=== PATIENT | female | born 1960 | race Caucasian/White ===

== ENCOUNTER 2018-07-20 08:37 | Observation (INO) ==
[2018-07-20] MEDS ORDERED: ASPIRIN 81 MG TAB.CHEW CHEWED ONE (08:48)
[2018-07-20] MEDS ORDERED: ONDANSETRON 4 MG/2 ML VIAL IV ONE (08:57)
[2018-07-20] MEDS ORDERED: LORazepam 2 MG/ML VIAL IV ONE (08:58)
--- NOTE | 2018-07-20 08:58 | XRay Report ---
HISTORY: New onset chest pain FINDINGS: The lungs are clear and well expanded. The heart size, pulmonary vasculature, mediastinum, dom and pleura are normal. IMPRESSION: Normal chest Interpreted and Authenticated by: Thanh Thacker 07/20/18
--- NOTE | 2018-07-20 09:00 | Emergency Department Note ---
Chest Pain HPI - General Chief Complaint: Chest Pain Stated Complaint: Left shoulder pain, nausea Time Seen by Provider: 07/20/18 08:58 Source: patient Mode of arrival: ambulatory Limitations: no limitations - History of Present Illness HPI Narrative: I briefly saw patient before change in shift. Dr. Hoffmann will follow-up for full history and physical. Patient presented with chest pain but was not able to speak with me due to some rapid breathing and some dry heaves. Her initial EKG was not remarkable for any ST elevation or depressions of significance. Because of her retching and breathing somewhat fast and having difficulties controlling this I ordered ondansetron and lorazepam. Dr. Hoffmann will finish the history and physical, treatment and intervention, and disposition. - Related Data Allergies Allergy/AdvReac Type Severity Reaction Status Date / Time No Known Drug Allergies Allergy Verified 07/20/18 08:38 Chest Pain PMH - Social History smoking status: Never smoker Physical Exam Limitations: no limitations Course Vital Signs Respiratory Rate 32 H 07/20/18 08:38 Pulse Oximetry (%) 97 07/20/18 08:38 Respiratory Rate 32 H 07/20/18 08:38 Pulse Oximetry (%) 97 07/20/18 08:38 Chest Pain - Lab Data Result diagrams: 07/20/18 08:57 07/20/18 08:57 Disposition Pt seen by CONSULTATIVE SALES ASSOCIATE/PA only: No Clinical Impression: Tachypnea Chest pain Qualifiers: Chest pain type: unspecified Qualified Code(s): R07.9 - Chest pain, unspecified Nausea & vomiting Qualifiers: Vomiting type: unspecified Vomiting Intractability: non-intractable Qualified Code(s): R11.2 - Nausea with vomiting, unspecified Disposition: Still a Patient
[2018-07-20] MEDS ORDERED: LACTATED RINGERS 1,000 ML IV ONE ×2 (09:17→10:30)
[2018-07-20] MEDS ORDERED: INSULIN REGULAR, HUMAN 1 UNIT/0.01 ML UNIT IV ONE (09:20)
[2018-07-20] MEDS ORDERED: 0.9 % SODIUM CHLORIDE 1,000 ML IV ONE (09:22)
[2018-07-20 09:32] LABS: Basophils # (Auto) 0 K/mcL (0.0-0.3); Basophils % (Auto) 0.1 % (0.0-2.0); Eosinophils # (Auto) 0 K/mcL (0.0-0.7); Eosinophils % (Auto) 0 % (0.0-7.0); Granulocytes % (Auto) 92.1 % (38.0-78.0); Lymphocytes # (Auto) 0.7 K/mcL (1.5-4.8); Lymphocytes % (Auto) 3.8 % (15.5-49.0); Mean Cell Volume 91.6 fL (80.0-100.0); Mean Corpuscular HGB Conc 33.2 g/dL (31.0-36.0); Mean Corpuscular Hemoglobin 30.4 pg (26.0-34.0); Monocytes # (Auto) 0.7 K/mcL (0.1-0.9); Platelet Count 222 K/mcL (140-440); RBC 4.49 M/mcL (4.00-5.20); Red Cell Distribution Width 13.9 % (11.5-14.5)
[2018-07-20 09:55] LABS: ALT/SGPT 17 U/l (0-40); Albumin 3.8 gm/dL (3.2-5.2); Albumin/Globulin Ratio 1.5 (1.0-2.3); Alkaline Phosphatase 71 U/L (39-117); Blood Urea Nitrogen 23 mg/dl (6-20); Creatine Kinase 55 IU/L (24-170); Creatine Kinase MB 2.7 ng/ml (0-2.9); Myoglobin 80 ng/ml (25-58)
--- NOTE | 2018-07-20 10:11 | Emergency Department Note ---
General Adult HPI - General Chief complaint: Chest Pain Stated complaint: Left shoulder pain, nausea Time Seen by Provider: 07/20/18 08:58 Source: patient Mode of arrival: ambulatory Limitations: no limitations - History of Present Illness HPI Narrative: 57-year-old female type I diabetic comes in after a night of nausea vomiting. Having chest pain and retching. She states it all started after putting some old insulin in her pump. She is visiting from [place] and ran out of her regular insulin and had to use an older bottle-she thinks it is bad and not working. Blood sugar has been climbing. She has continuous monitor and pump. She states she has never had a diabetic coma before nor has she been in DKA. She is concerned because she has to take a plane at 2:00 p.m. home. She was not ill before this episode of using this old insulin - Related Data Allergies Allergy/AdvReac Type Severity Reaction Status Date / Time No Known Drug Allergies Allergy Verified 07/20/18 08:38 Review of Systems All systems ED: reviewed and negative except as stated. Past Medical History - Past Medical History Attestation: Yes: The following information was validated with the patient. Medical history: Reports: DM (Type I), hyperlipidemia, hypertension, thyroid disease Surgical history ED: Reports: - Social History smoking status: Never smoker Physical Exam Thin ascencio female no acute distress resting comfortably. Normocephalic atraumatic. Conjunctive are clear sclerae nonicteric. No nasal discharge or congestion. Heart is tachycardic without murmur. Lungs are clear to auscultation bilaterally without wheezes rales rhonchi or respiratory distress. No pedal edema. Alert oriented able to answer questions appropriately Limitations: no limitations Course Vital Signs Pulse Rate 92 H 07/20/18 08:38 Respiratory Rate 32 H 07/20/18 08:38 Blood Pressure 125/51 07/20/18 08:38 Pulse Oximetry (%) 97 07/20/18 08:38 Pulse Rate 98 H 07/20/18 10:31 Respiratory Rate 30 H 07/20/18 10:47 Blood Pressure 105/40 07/20/18 10:46 Pulse Oximetry (%) 96 07/20/18 10:31 Medical Decision Making - Medical Records Medical records reviewed: Yes I reviewed the patient's medical records. Nothing here - Lab Data Lab results reviewed: Yes I reviewed the patient's lab results. Result diagrams: 07/20/18 08:57 07/20/18 08:57 Lab Results 07/20/18 07/20/18 07/20/18 Range/Units 08:57 08:57 08:57 WBC 18.2 H (4.5-11.0) K/mcL RBC 4.49 (4.00-5.20) M/mcL Hgb 13.6 (12.0-15.0) g/dL Hct 41.1 (36.0-48.0) % MCV 91.6 (80.0-100.0) fL MCH 30.4 (26.0-34.0) pg MCHC 33.2 (31.0-36.0) g/dL RDW 13.9 (11.5-14.5) % Plt Count 222 (140-440) K/mcL MPV 8.9 (7.4-10.4) fL Gran % 92.1 H (38.0-78.0) % Lymph % (Auto) 3.8 L (15.5-49.0) % [place] % (Auto) 4.0 (1.0-12.0) % Eos % (Auto) 0 (0.0-7.0) % Baso % (Auto) 0.1 (0.0-2.0) % Gran # 16.7 H (1.8-8.0) K/mcL Lymph # (Auto) 0.7 L (1.5-4.8) K/mcL [place] # (Auto) 0.7 (0.1-0.9) K/mcL Eos # (Auto) 0 (0.0-0.7) K/mcL Baso # (Auto) 0 (0.0-0.3) K/mcL Sodium 134 (133-145) mmol/L Potassium 4.5 (3.3-5.1) mmol/L Chloride 92 L (96-108) mmol/L Carbon Dioxide 13 L (22-30) mmol/L Anion Gap 29.0 H (8-16) BUN 23 H (6-20) mg/dl Creatinine 1.1 (0.6-1.1) mg/dl GFR Calculation 56 Glucose 444 H (70-105) mg/dL Calcium 9.7 (8.6-10.4) mg/dl Total Bilirubin 1.9 H (0.0-1.0) mg/dL AST 15 (0-37) U/l ALT 17 (0-40) U/l Alkaline Phosphatase 71 (39-117) U/L Total Creatine Kinase 55 (24-170) IU/L CK-MB (CK-2) 2.7 (0-2.9) ng/ml Myoglobin 80 H (25-58) ng/ml Troponin T < 0.01 (0-0.03) ng/ml Total Protein 6.4 (5.9-8.4) gm/dL Albumin 3.8 (3.2-5.2) gm/dL Globulin 2.6 (2.2-3.7) gm/dL Albumin/Globulin Ratio 1.5 (1.0-2.3) Beta-Hydroxybutyrate (< 0.27) mmol/L 07/20/18 Range/Units 08:57 WBC (4.5-11.0) K/mcL RBC (4.00-5.20) M/mcL Hgb (12.0-15.0) g/dL Hct (36.0-48.0) % MCV (80.0-100.0) fL MCH (26.0-34.0) pg MCHC (31.0-36.0) g/dL RDW (11.5-14.5) % Plt Count (140-440) K/mcL MPV (7.4-10.4) fL Gran % (38.0-78.0) % Lymph % (Auto) (15.5-49.0) % [place] % (Auto) (1.0-12.0) % Eos % (Auto) (0.0-7.0) % Baso % (Auto) (0.0-2.0) % Gran # (1.8-8.0) K/mcL Lymph # (Auto) (1.5-4.8) K/mcL [place] # (Auto) (0.1-0.9) K/mcL Eos # (Auto) (0.0-0.7) K/mcL Baso # (Auto) (0.0-0.3) K/mcL Sodium (133-145) mmol/L Potassium (3.3-5.1) mmol/L Chloride (96-108) mmol/L Carbon Dioxide (22-30) mmol/L Anion Gap (8-16) BUN (6-20) mg/dl Creatinine (0.6-1.1) mg/dl GFR Calculation Glucose (70-105) mg/dL Calcium (8.6-10.4) mg/dl Total Bilirubin (0.0-1.0) mg/dL AST (0-37) U/l ALT (0-40) U/l Alkaline Phosphatase (39-117) U/L Total Creatine Kinase (24-170) IU/L CK-MB (CK-2) (0-2.9) ng/ml Myoglobin (25-58) ng/ml Troponin T (0-0.03) ng/ml Total Protein (5.9-8.4) gm/dL Albumin (3.2-5.2) gm/dL Globulin (2.2-3.7) gm/dL Albumin/Globulin Ratio (1.0-2.3) Beta-Hydroxybutyrate 2.60 H (< 0.27) mmol/L ABG shows a pH of 7.34 which is mildly acidotic PCO2 at 34 and a PO2 of 77 - Radiology Data Radiology results reviewed: Yes I reviewed the patient's radiology results. Chest x-ray shows no acute changes - EKG Data EKG #1 EKG attestation: Yes I reviewed and interpreted this EKG. EKG results narrative: EKG rate of 91 sinus rhythm with 1 PAC and upsloping inferior ST borderline depression. Does not meet criteria Disposition Pt seen by SIGNAL APPRENTICE/PA only: No Clinical Impression: Tachypnea Chest pain Qualifiers: Chest pain type: unspecified Qualified Code(s): R07.9 - Chest pain, unspecified DKA (diabetic ketoacidosis) Qualifiers: Diabetes mellitus type: type 1 Diabetes mellitus complication detail: without coma Qualified Code(s): E10.10 - Type 1 diabetes mellitus with ketoacidosis without coma Summary: Patient was initially seen by Dr. Robles and chest pain protocol ordered. No acute EKG changes were seen. Patient was checked out to me at shift change. Zofran was given for nausea and vomiting along with aspirin. See orders patient is clearly in DKA with anion gap of 29 and blood sugar over 400. She was given 5 units of insulin. IV fluids were started; blood sugar only came down to 421 at next check. She showed me her monitor it does clearly show elevated blood sugar with this old insulin in the cartridge Discussed with her the need for hospitalization IV fluids and insulin drip to correct her blood sugars and anion gap. I informed Dr. Tommy De Luna, hospitalist, about the patient and await bed status. Repeat Chem-8 as ordered for 1115 to check on anion gap Hospitalist accepted patient will be admitted for further care and evaluation Disposition: Xfer As Inpt ([facility]) Condition: Fair
[2018-07-20] MEDS ORDERED: INSULIN REGULAR, HUMAN 50 UNIT in 0.9 % SODIUM CHLORIDE 99.5 ML IV SCH (10:15)
[2018-07-20] MEDS ORDERED: 0.9 % SODIUM CHLORIDE 1,000 ML IV SCH ×2 (11:00→12:30)
[2018-07-20] MEDS ORDERED: INSULIN REGULAR, HUMAN 50 UNIT in 0.9 % SODIUM CHLORIDE 100 ML IV SCH (11:00)
--- NOTE | 2018-07-20 11:14 | Internal Med History&Physical ---
Medical - H&P: HPI Patient information: Note initiated : 07/20/18 at 11:11 am Service Date, if different from initiated Date: [] Patient: Myah Alatorre a 57 y/o F admitted on for Left Shoulder Pain, Nausea. Chief Complaint: [] History of present illness: Ms. Alatorre is a 57 year old F Who was visiting her mother from out of town. She is a diabetic type I and uses insulin pump. Visiting from [place]. She brought a couple old bottles of insulin and she was doing well until yesterday afternoon. At 1:00 she finished her bottle of insulin and put 1 of her old bottles and then she went to lunch has valid little while after that she started having nausea vomiting abdominal pain anxious tachycardic continued through the evening. She is concerned about the old insulin bottles being the cause versus food she ate. She has never had DKA before. In the ER she was evaluated and found to have DKA and started on insulin drip and aggressive IV fluid hydration. Review of systems: Positive for nausea vomiting retching abdominal pain some shortness of breath with the anxiety abdominal muscle wall tenderness. Some headache and fever chills. Negative for coughing diarrhea constipation remaining 10 point review of systems reviewed and negative. Medical - H&P: PMH Medical history: Medical history: Diabetes type 1 on insulin pump Hypertension Hyperlipidemia next hypothyroidism depression/anxiety Surgical history: Several C-sections Family history: Mother had [place] Father had CAD Social history: Patient denies tobacco Drinks alcohol rarely Visiting from out of town from [place] Medication list: Levothyroxine Pravastatin Losartan Paxil Ativan Dosage is being clarified No known drug allergies Medical - H&P: Meds Allergies Allergy/AdvReac Type Severity Reaction Status Date / Time No Known Drug Allergies Allergy Verified 07/20/18 08:38 Medical - H&P: Exam - Constitutional Vitals: Pulse Resp BP Pulse Ox 98 H 30 H 105/40 96 07/20/18 10:31 07/20/18 10:47 07/20/18 10:46 07/20/18 10:31 Exam: General: Alert, Awake, No acute Distress HEENT: EOMI, dry mucous membranes, normocephalic atraumatic, neck supple CV: Tachycardia but regular, No murmurs, normal s1/s2 Pulm: Clear b/l, no wheezing/rhonchi/rales Abd: soft, nontender, +BS x4 Ext: no clubbing/cyanosis/edema Neuro: Alert, no focal deficits, moves all extremities Skin: warm/dry Medical - H&P: Reslt - Labs CBC & Chem 7: 07/20/18 08:57 07/20/18 08:57 Labs: Short CBC 07/20/18 Range/Units 08:57 WBC 18.2 H (4.5-11.0) K/mcL Hgb 13.6 (12.0-15.0) g/dL Hct 41.1 (36.0-48.0) % Plt Count 222 (140-440) K/mcL BMP 07/20/18 08:57 Sodium 134 Potassium 4.5 Chloride 92 L Carbon Dioxide 13 L BUN 23 H Creatinine 1.1 Glucose 444 H Calcium 9.7 Cardiac Enzymes 07/20/18 07/20/18 Range/Units 08:57 08:57 Total Creatine Kinase 55 (24-170) IU/L CK-MB (CK-2) 2.7 (0-2.9) ng/ml Troponin T < 0.01 (0-0.03) ng/ml Liver Function 07/20/18 Range/Units 08:57 Total Bilirubin 1.9 H (0.0-1.0) mg/dL AST 15 (0-37) U/l ALT 17 (0-40) U/l Alkaline Phosphatase 71 (39-117) U/L Albumin 3.8 (3.2-5.2) gm/dL Medical - H&P: A/P - Narrative A/P Narrative: A: *DKA: Secondary to insulin *Nausea vomiting abdominal pain: Secondary to above *volume Depletion: Secondary to above *History of hypertension: *Hypothyroidism: *History of depression/anxiety: P: -Insulin drip -Aggressive IV fluid hydration -Serial electrolytes and replete as needed -Stop patient's current insulin pump -Advance diet as tolerated -Clarify home medications and update system - -ppx:lovenox
[2018-07-20] MEDS ORDERED: LORazepam 2 MG/ML VIAL IV PRN ×2 (11:22→12:20)
[2018-07-20 12:16] LABS: Blood Urea Nitrogen 25 mg/dl (6-20)
[2018-07-20] MEDS ORDERED: ACETAMINOPHEN 325 MG TABLET PO PRN (12:20)
[2018-07-20] MEDS ORDERED: PROCHLORPERAZINE 25 MG SUPP.RECT PR PRN (12:20)
[2018-07-20] MEDS ORDERED: ONDANSETRON 4 MG/2 ML VIAL IV PRN (12:20)
[2018-07-20 13:09] LABS: Free T4 (Free Thyroxine) 1.15 ng/dl (0.7-1.7)
[2018-07-20] MEDS: 0.9 % SODIUM CHLORIDE 10 ML SYRINGE IV SCH ×2 (14:22→22:10)
[2018-07-20] MEDS: DEXTROSE 5%-NS 1,000 ML IV SCH ×2 (15:15→21:48)
[2018-07-20 15:45] LABS: Appearance,Urine CLEAR; Bacteria,Urine 0 /hpf (0); Bilirubin,Urine NEG (NEG); Color,Urine YELLOW; Glucose,Urine (UA) >=500 mg/dL (NEG); Leukocyte Esterase,Urine NEG /uL (NEG); Mucus,Urine FEW /hpf (0); Protein,Urine NEG (NEG); Specific Gravity,Urine 1.023 (1.000-1.035); Urine Blood NEG mg/dL (<0.03); Urine RBC < 1 /hpf (0-1); Urine Squamous Epithelial Cell 1 /hpf (0-4); Urine Transitional Epi Cells < 1 /hpf (0-2); Urine WBC 2 /hpf (0-4); Urobilinogen,Urine NEG (NEG)
[2018-07-20] MEDS: INSULIN REGULAR, HUMAN 50 UNIT in 0.9 % SODIUM CHLORIDE 99.5 ML IV SCH (18:11)
[2018-07-20] MEDS ORDERED: INSULIN REGULAR, HUMAN 1 UNIT/0.01 ML UNIT ONE (18:28)
[2018-07-20 20:31] LABS: Blood Urea Nitrogen 22 mg/dl (6-20)
[2018-07-21] MEDS ORDERED: INSULIN NPH, HUMAN 1 UNIT/0.01 ML UNIT SQ ONE ×2 (02:04→02:19)
[2018-07-21 04:59] LABS: Basophils # (Auto) 0 K/mcL (0.0-0.3); Basophils % (Auto) 0.2 % (0.0-2.0); Eosinophils # (Auto) 0 K/mcL (0.0-0.7); Eosinophils % (Auto) 0.3 % (0.0-7.0); Granulocytes % (Auto) 77.9 % (38.0-78.0); Lymphocytes # (Auto) 1.8 K/mcL (1.5-4.8); Mean Corpuscular Hemoglobin 30.7 pg (26.0-34.0); Monocytes % (Auto) 7.6 % (1.0-12.0); Platelet Count 172 K/mcL (140-440); Red Cell Distribution Width 13.7 % (11.5-14.5)
[2018-07-21 05:17] LABS: ALT/SGPT 13 U/l (0-40); Albumin 2.9 gm/dL (3.2-5.2); Albumin/Globulin Ratio 1.5 (1.0-2.3); Alkaline Phosphatase 51 U/L (39-117); Bilirubin,Direct 0.2 mg/dL (0.0-0.3); Blood Urea Nitrogen 19 mg/dl (6-20); Gamma Glutamyl Transpeptidase 8 U/L (5-36); Uric Acid 4.5 mg/dL (2.5-8.0)
[2018-07-21] MEDS: INSULIN REGULAR, HUMAN 50 UNIT in 0.9 % SODIUM CHLORIDE 99.5 ML IV SCH (05:47)
[2018-07-21] MEDS: 0.9 % SODIUM CHLORIDE 10 ML SYRINGE IV SCH (05:48)
--- NOTE | 2018-07-21 07:45 | Discharge Summary ---
Medical - DS: Prov Patient information: Note initiated : 07/21/18 at 7:42 am Service Date, if different from initiated Date: [] Patient: Myah Alatorre a 57 y/o F admitted on 07/20/18 for Left Shoulder Pain , Nausea. Chief Complaint: [] Date of admission: 07/20/18 11:58 Discharge date: 07/21/18 Consults: 07/20/18 Consult to Physician [CONS] Stat Comment: Consulting Provider: Tommy De Luna Reason For Exam: Physician to Consult Discharging clinician: Myesha Santamaria Medical - DS: Meds - Discharge Medications Prescriptions: Insulin Lispro [HumaLOG] 1 unit SQ UD #3 vial Active and Home Medications: Home Medications Insulin Lispro [Humalog] 1 unit SUB-Q DAILY 07/20/18 [History Confirmed Last Taken Unknown] Losartan Potassium [Cozaar] 25 mg PO DAILY 07/20/18 [History Confirmed 07/20/18 Last Taken Unknown] PARoxetine HCL [Paroxetine HCl] 20 mg PO DAILY 07/20/18 [History Confirmed 07/20 Last Taken Unknown] Pravastatin Sodium [Pravachol] 20 mg PO DAILY 07/20/18 [History Confirmed Last Taken Unknown] Thyroid,Pork [[place] Thyroid] 60 mg PO DAILY 07/20/18 [History Confirmed Last Taken Unknown] Insulin Lispro [HumaLOG] 1 unit SQ UD #3 vial 07/21/18 [Rx Last Taken Unknown] Medical - DS: Hosp Hospital course: Ms. Alatorre is a 57 year old F who was visiting her mother from [facility]. She is a diabetic type I and uses insulin pump. Visiting from [place]. She brought a couple old bottles of insulin and she was doing well until yesterday afternoon. At 1:00 she finished her bottle of insulin and put 1 of her old bottles and then she went to lunch has valid little while after that she started having nausea vomiting abdominal pain anxious tachycardic continued through the evening. She is concerned about the old insulin bottles being the cause versus food she ate. She has never had DKA before. In the ER she was evaluated and found to have DKA and started on insulin drip and aggressive IV fluid hydration, admitted to the hospital for further management The patient was treated per protocol for DKA, IVF, Insulin drip, patient responded to treatment well. She had elevated leucocytosis, but clinically no e/ o infection. The DKA was resolved by the end of the day yesterday, pt was able to tolerate po diet well. Her WBC trending down well. The reason for DKA is likely use of insulin. The patient at the time of discharge was able to tolerate po diet well, ambulating well, back to baseline. New prescription for insulin sent to the pharmacy, pt will pick it up and resume the insulin pump. She also has a continuous glucose monitor. Discharge diagnosis: DKA - Time Spent with Patient Total time spent providing and/or coordinating discharge services: Greater than 30 minutes Medical - DS: Exam - Constitutional Vitals: Vital Signs Temp Pulse Pulse Resp BP BP BP 07/21/18 06:58 98.7 F 87 16 139/63 07/21/18 03:37 98.9 F 84 16 122/62 07/21/18 01:00 98.5 F 16 116/62 07/20/18 20:59 96 H 98/41 07/20/18 20:00 99.5 F H 92 H 18 98/41 07/20/18 16:20 94 H 07/20/18 16:01 97.5 F 101 H 110/42 07/20/18 16:00 99.8 F H 104 H 18 112/47 07/20/18 15:34 109 H 112/47 07/20/18 12:47 99.4 F H 20 101/59 07/20/18 12:08 107/48 07/20/18 12:07 101 H 101/59 07/20/18 11:58 99.4 F H 102 H 16 101/59 07/20/18 11:56 24 H 07/20/18 11:31 99 H 17 107/48 07/20/18 11:24 102 H 17 132/50 07/20/18 11:01 16 111/39 07/20/18 10:47 30 H 07/20/18 10:46 19 105/40 07/20/18 10:31 98 H 19 98/35 07/20/18 10:16 98 H 18 101/39 07/20/18 10:01 107 H 17 111/42 07/20/18 09:54 19 07/20/18 09:50 20 107/38 07/20/18 09:48 98 H 20 100/35 07/20/18 09:46 96 H 19 89/37 07/20/18 09:45 99 H 07/20/18 09:31 89 18 112/74 07/20/18 09:23 90 17 07/20/18 09:16 71 22 122/58 07/20/18 09:12 81 17 125/51 07/20/18 09:05 25 H 07/20/18 08:57 30 H 131/61 07/20/18 08:38 92 H 32 H 125/51 Pulse Ox 07/21/18 06:58 99 07/21/18 03:37 96 07/21/18 01:00 98 07/20/18 20:59 97 07/20/18 20:00 97 07/20/18 16:20 95 07/20/18 16:01 91 07/20/18 16:00 96 07/20/18 15:34 96 07/20/18 12:47 97 07/20/18 12:08 07/20/18 12:07 97 07/20/18 11:58 97 07/20/18 11:56 07/20/18 11:31 97 07/20/18 11:24 97 07/20/18 11:01 07/20/18 10:47 07/20/18 10:46 07/20/18 10:31 96 07/20/18 10:16 97 07/20/18 10:01 97 07/20/18 09:54 07/20/18 09:50 07/20/18 09:48 98 07/20/18 09:46 97 07/20/18 09:45 07/20/18 09:31 99 07/20/18 09:23 100 07/20/18 09:16 80 L 07/20/18 09:12 100 07/20/18 09:05 97 07/20/18 08:57 07/20/18 08:38 97 Intake and Output 07/20/18 07/21/18 07/21/18 21:59 05:59 13:59 Intake Total 1666 / 1666 200 / 200 Output Total 400 / 400 Balance 1266 / 1266 200 / 200 Intake: IV 1066 / 1066 0 / 0 Dextrose 5%-Ns IV Solution 1, 983 / 983 000 ml @ 150 mls/hr IV .[id number] [facility] Rx#:[id number] HumuLIN R 50 UNIT In Sodium 69 / 69 0 / 0 Chloride 0.9% 99.5 ml @ 3 UNIT/ HR 6 mls/hr IV Q17H [facility] Rx#: [id number] Oral 600 / 600 200 / 200 Output: Urine Catheter Amount 400 / 400 Other: Meal Dinner Percent of Meal Consumed 100% Feeding Ability Assist with Tray Set Up Urine Appearance Clear Urine Color Straw Urine Odor Normal Stool Size Moderate Stool Color Brown Stool Consistency Formed Weight 150 lb 6.4 oz Additional comments: Constitutional; Afebrile, cooperative, alert, not in distress. Eyes- No icterus, , No periorbital swelling Ears- Ext ear normal, hearing normal to conversation. Neck- Midline trachea, supple Respiratory system: Air Entry equal on both sides, No crackles or wheezing, no rhonchi. CVS- Rate rhythm regular, S1,S2 heard, no gallop, no rub. Abdomen- Soft nontender abdomen, no organomegaly, no tenderness, no guarding or rigidity, REHABILITATOR- AOOx3, moving all extremities, no gross focal deficit noted. Medical - DS: Data Labs on day of discharge: Labs from last 24 hours 07/21/18 07/21/18 07/21/18 03:50 03:50 03:50 WBC 13.2 H RBC 3.60 L Hgb 11.1 L Hct 33.5 L POC Hct MCV 93.0 MCH 30.7 MCHC 33.0 RDW 13.7 Plt Count 172 MPV 8.5 Gran % 77.9 Lymph % (Auto) 14.0 L [place] % (Auto) 7.6 Eos % (Auto) 0.3 Baso % (Auto) 0.2 Gran # 10.3 H Lymph # (Auto) 1.8 [place] # (Auto) 1.0 H Eos # (Auto) 0 Baso # (Auto) 0 POC Sodium Sodium 139 Not Reportable POC Potassium Potassium 4.4 Not Reportable POC Chloride Chloride 107 Not Reportable Carbon Dioxide 21 L Not Reportable POC Total CO2 Anion Gap 11.0 Not Reportable POC BUN BUN 19 Not Reportable Creatinine 0.8 Not Reportable POC Creatinine GFR Calculation 82 Not Reportable Glucose 225 H TNP POC Glucose Uric Acid 4.5 Calcium 8.1 L Not Reportable POC WB Ioniz Calcium Phosphorus 3.4 Magnesium 1.9 Not Reportable Total Bilirubin 1.2 H Direct Bilirubin 0.2 GGT 8 AST 13 ALT 13 Alkaline Phosphatase 51 Lactate Dehydrogenase 160 Total Creatine Kinase CK-MB (CK-2) Myoglobin Troponin T Total Protein 4.8 L Albumin 2.9 L Globulin 1.9 L Albumin/Globulin Ratio 1.5 Triglycerides 47 Beta-Hydroxybutyrate TSH Free T4 Free T3 pg/mL Urine Color Urine Appearance Urine pH Ur Specific [place] Urine Protein Urine Glucose (UA) Urine Ketones Urine Occult Blood Urine Nitrate Urine Bilirubin Urine Urobilinogen Ur Leukocyte Esterase Urine RBC Urine WBC Ur Squamous Epith Cells Ur Transition Epith Cell Urine Bacteria Urine Mucus Ur Culture Indicated? 07/20/18 07/20/18 07/20/18 19:00 12:25 11:19 WBC RBC Hgb Hct POC Hct 37.0 MCV MCH MCHC RDW Plt Count MPV Gran % Lymph % (Auto) [place] % (Auto) Eos % (Auto) Baso % (Auto) Gran # Lymph # (Auto) [place] # (Auto) Eos # (Auto) Baso # (Auto) POC Sodium 136 Sodium 135 135 POC Potassium 3.8 Potassium 4.0 4.0 POC Chloride 102 Chloride 103 99 Carbon Dioxide 19 L 17 L POC Total CO2 20 L Anion Gap 13.0 19.0 H POC BUN 25 H BUN 22 H 25 H Creatinine 1.0 0.9 POC Creatinine 0.9 GFR Calculation 63 71 Glucose 349 H 376 H POC Glucose 364 H Uric Acid Calcium 8.7 9.1 POC WB Ioniz Calcium 1.12 L Phosphorus Magnesium 2.0 1.9 Total Bilirubin Direct Bilirubin GGT AST ALT Alkaline Phosphatase Lactate Dehydrogenase Total Creatine Kinase CK-MB (CK-2) Myoglobin Troponin T Total Protein Albumin Globulin Albumin/Globulin Ratio Triglycerides Beta-Hydroxybutyrate TSH 0.02 L Free T4 Free T3 pg/mL Urine Color Yellow Urine Appearance Clear Urine pH 5.0 Ur Specific [place] 1.023 Urine Protein Neg Urine Glucose (UA) >=500 A Urine Ketones 80 A Urine Occult Blood Neg Urine Nitrate Neg Urine Bilirubin Neg Urine Urobilinogen Neg Ur Leukocyte Esterase Neg Urine RBC < 1 Urine WBC 2 Ur Squamous Epith Cells 1 Ur Transition Epith Cell < 1 Urine Bacteria 0 Urine Mucus Few Ur Culture Indicated? No 07/20/18 07/20/18 07/20/18 08:57 08:57 08:57 WBC RBC Hgb Hct POC Hct MCV MCH MCHC RDW Plt Count MPV Gran % Lymph % (Auto) [place] % (Auto) Eos % (Auto) Baso % (Auto) Gran # Lymph # (Auto) [place] # (Auto) Eos # (Auto) Baso # (Auto) POC Sodium Sodium POC Potassium Potassium POC Chloride Chloride Carbon Dioxide POC Total CO2 Anion Gap POC BUN BUN Creatinine POC Creatinine GFR Calculation Glucose POC Glucose Uric Acid Calcium POC WB Ioniz Calcium Phosphorus Magnesium Total Bilirubin Direct Bilirubin GGT AST ALT Alkaline Phosphatase Lactate Dehydrogenase Total Creatine Kinase CK-MB (CK-2) Myoglobin Troponin T < 0.01 Total Protein Albumin Globulin Albumin/Globulin Ratio Triglycerides Beta-Hydroxybutyrate 2.60 H TSH Free T4 1.15 Free T3 pg/mL 2.0 Urine Color Urine Appearance Urine pH Ur Specific [place] Urine Protein Urine Glucose (UA) Urine Ketones Urine Occult Blood Urine Nitrate Urine Bilirubin Urine Urobilinogen Ur Leukocyte Esterase Urine RBC Urine WBC Ur Squamous Epith Cells Ur Transition Epith Cell Urine Bacteria Urine Mucus Ur Culture Indicated? 07/20/18 07/20/18 08:57 08:57 WBC 18.2 H RBC 4.49 Hgb 13.6 Hct 41.1 POC Hct MCV 91.6 MCH 30.4 MCHC 33.2 RDW 13.9 Plt Count 222 MPV 8.9 Gran % 92.1 H Lymph % (Auto) 3.8 L [place] % (Auto) 4.0 Eos % (Auto) 0 Baso % (Auto) 0.1 Gran # 16.7 H Lymph # (Auto) 0.7 L [place] # (Auto) 0.7 Eos # (Auto) 0 Baso # (Auto) 0 POC Sodium Sodium 134 POC Potassium Potassium 4.5 POC Chloride Chloride 92 L Carbon Dioxide 13 L POC Total CO2 Anion Gap 29.0 H POC BUN BUN 23 H Creatinine 1.1 POC Creatinine GFR Calculation 56 Glucose 444 H POC Glucose Uric Acid Calcium 9.7 POC WB Ioniz Calcium Phosphorus Magnesium Total Bilirubin 1.9 H Direct Bilirubin GGT AST 15 ALT 17 Alkaline Phosphatase 71 Lactate Dehydrogenase Total Creatine Kinase 55 CK-MB (CK-2) 2.7 Myoglobin 80 H Troponin T Total Protein 6.4 Albumin 3.8 Globulin 2.6 Albumin/Globulin Ratio 1.5 Triglycerides Beta-Hydroxybutyrate TSH Free T4 Free T3 pg/mL Urine Color Urine Appearance Urine pH Ur Specific [place] Urine Protein Urine Glucose (UA) Urine Ketones Urine Occult Blood Urine Nitrate Urine Bilirubin Urine Urobilinogen Ur Leukocyte Esterase Urine RBC Urine WBC Ur Squamous Epith Cells Ur Transition Epith Cell Urine Bacteria Urine Mucus Ur Culture Indicated? Medical - DS: A/P - Patient/Caregiver Discharge Instructions Activity: increase activity as tolerated Diet: Consistent Carbohydrate Additional Instructions: Please resume you home dose of insulin as soon as possible follow up with pcp in 1 week No changes have been made in your chr home medications, please take them as prescribed by your previous provider Go to the ER if worsening symptoms, chest pain, shortness of breath or any other acute concerns. Prescriptions: Insulin Lispro [HumaLOG] 1 unit SQ UD #3 vial - Follow up Plan Disposition: Home, Self-Care Prognosis: Fair Rehab Potential: Fair I certify that the patient requires SNF services: No Overall status at discharge: patient is back to baseline Medical - DS: Qual - VTE Deep Vein Thrombosis/Pulmonary Embolism Present on Admission: No
[2018-07-21] MEDS ORDERED: DEXTROSE 31 GM ORAL.SUSP PO PRN (07:50)
[2018-07-21] MEDS ORDERED: DEXTROSE 50% 50 ML VIAL IV PRN (07:50)
[2018-07-21] MEDS ORDERED: ENOXAPARIN 40 MG/0.4 ML SYRINGE SQ SCH (09:00)
[2018-07-21] MEDS ORDERED: INSULIN LISPRO 1 UNIT/0.01 ML UNIT SQ SCH (11:30)
== END 2018-07-21 08:35 | disposition home or self-care (01) ==
LOC: ED 08:37 → INTOOBSV 11:58 → ICU 11:58
PROVIDERS: ADMIT Internal Medicine; ATTEND Internal Medicine